=== PATIENT | male | born 1985 | race Caucasian/White ===

== ENCOUNTER 2016-05-21 02:06 | Emergency (ER) | payer OTHER ==
[~2016-05-21] VITALS: Ht 175.3 cm; Wt 77.1 kg
[2016-05-21 02:21] VITALS: BP 130/74
[2016-05-21] MEDS ORDERED: ACETAMINOPHEN 325 MG TAB PO ONE (02:30)
== END 2016-05-21 03:18 | disposition home or self-care (01) ==
LOC: ER 02:06
DX: S09.8XXA Other specified injuries of head, initial encounter (principal); W22.8XXA Striking against or struck by other objects, initial encounter; Y93.39 Activity, other involving climbing, rappelling and jumping off; Y99.0 Civilian activity done for income or pay; Y92.410 Unspecified street and highway as the place of occurrence of the external cause
CPT/HCPCS: 70450